=== PATIENT | male | born 1975 | race Caucasian/White ===

== ENCOUNTER 2020-01-24 11:15 | Emergency (ER) | payer SELFPAY ==
[~2020-01-24] VITALS: Ht 177.8 cm; Wt 64.4 kg
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
== END 2020-01-24 11:30 | disposition left against medical advice (07) ==
LOC: ER 11:30
DX: S00.83XA Contusion of other part of head, initial encounter (principal); S40.211A Abrasion of right shoulder, initial encounter; V29.9XXA Motorcycle rider (driver) (passenger) injured in unspecified traffic accident, initial encounter; Y92.488 Other paved roadways as the place of occurrence of the external cause; K21.9 Gastro-esophageal reflux disease without esophagitis
CPT/HCPCS: 99281